=== PATIENT | female | born 1945 | race Caucasian/White ===

== ENCOUNTER 2016-04-29 10:15 | Outpatient (CLI) | payer MEDICARE, OTHER | END 2016-04-29 10:16 | disposition home or self-care (01) | DX: E11.9 Type 2 diabetes mellitus without complications (principal); Z79.899 Other long term (current) drug therapy ==

== ENCOUNTER 2016-04-29 13:31 | Emergency (ER) | END 2016-04-29 15:39 | disposition left against medical advice (07) ==

== ENCOUNTER 2016-04-30 10:23 | Outpatient (CLI) | payer MEDICARE, OTHER | END 2016-04-30 10:24 | disposition home or self-care (01) | DX: N30.01 Acute cystitis with hematuria (principal) ==

== ENCOUNTER 2016-09-24 13:56 | Outpatient (CLI) | payer MEDICARE, OTHER ==
[2016-09-24 19:07] LABS: HEMOGLOBIN A1C 0.48 g/dL
== END 2016-09-24 13:57 ==
LOC: LAB.R 13:56
PROVIDERS: ATTEND Internal Medicine
DX: E11.9 Type 2 diabetes mellitus without complications (principal)
CPT/HCPCS: 83036

== ENCOUNTER 2016-11-03 10:00 | Outpatient (CLI) | payer MEDICARE, OTHER | END 2016-11-03 10:01 | disposition home or self-care (01) | LOC: SC 10:00 | PROVIDERS: ATTEND Internal Medicine Pulmonary Disease | DX: G47.33 Obstructive sleep apnea (adult) (pediatric) (principal) | CPT/HCPCS: 99203; G0463; 99212 ==

== ENCOUNTER 2017-01-29 08:00 | Outpatient (CLI) | payer MEDICARE, OTHER ==
[2017-01-29 13:57] LABS: HEMOGLOBIN A1C 0.49 g/dL
== END 2017-01-29 08:01 | disposition home or self-care (01) ==
LOC: LAB.N 08:00
PROVIDERS: ATTEND Physician Assistant Medical
DX: E11.9 Type 2 diabetes mellitus without complications (principal); Z79.899 Other long term (current) drug therapy
CPT/HCPCS: 36415; 82947; 83036

== ENCOUNTER 2017-02-06 08:00 | Outpatient (CLI) | payer MEDICARE, OTHER ==
[2017-02-06 14:35] LABS: BASOPHILS # (AUTO) 0.1 10^3/uL (0.0-0.1); BASOPHILS % (AUTO) 0.8 %; EOSINOPHILS # (AUTO) 0.3 10^3/uL (0.0-0.7); EOSINOPHILS % (AUTO) 3.9 %; HCT - HEMATOCRIT 35.1 % (37.0-47.0); HGB - HEMOGLOBIN 11.8 g/dL (12.0-16.0); LYMPHOCYTES # (AUTO) 1.8 10^3/uL (1.5-3.5); LYMPHOCYTES % (AUTO) 24.7 %; MEAN CORPUSCULAR HEMOGLOBIN 30.1 pg (27.0-31.0); MEAN CORPUSCULAR HGB CONC 33.6 g/dL (32.0-36.0); MEAN CORPUSCULAR VOLUME 89.7 fL (81.0-99.0); MEAN PLATELET VOLUME 9.7 fL (7.9-10.8); MONOCYTES # (AUTO) 0.6 10^3/uL (0.0-1.0); MONOCYTES % (AUTO) 7.7 %; NEUTROPHILS # (AUTO) 4.7 10^3/uL (1.5-6.6); NEUTROPHILS % (AUTO) 62.9 %; RED BLOOD COUNT 3.92 10^6/uL (4.20-5.40); RED CELL DISTRIBUTION WIDTH 13.2 % (12.0-15.0); UNCORRECTED WHITE BLOOD COUNT 7.4 x10^3/uL; WHITE BLOOD COUNT 7.4 x10^3/uL (4.8-10.8)
[2017-02-06 14:52] LABS: ALBUMIN/GLOBULIN RATIO 1.1 (1.0-2.2); BILIRUBIN,TOTAL 0.3 mg/dL (0.2-1.0); BUN - BLOOD UREA NITROGEN 19 mg/dL (6-20); CALCIUM 9.4 mg/dL (8.5-10.3); CARBON DIOXIDE - CO2 26 mmol/L (21-32); CHLORIDE 98 mmol/L (101-111); CHOL/HDL RATIO 5.9 (<4.4); CHOLESTEROL 207 mg/dL; CREATININE 0.8 mg/dL (0.4-1.0); GFR - MDRD 70 (>89); GLUCOSE 112 mg/dL (70-100); HDL CHOLESTEROL 35 mg/dL; LDL/HDL RATIO 3.5 (<4.4); POTASSIUM 4.2 mmol/L (3.5-5.0); SODIUM 135 mmol/L (135-145); TOTAL PROTEIN 7.5 g/dL (6.7-8.2); TRIGLYCERIDES 251 mg/dL; VLDL CHOLESTEROL 50 mg/dL
== END 2017-02-06 08:01 | disposition home or self-care (01) ==
LOC: LAB.R 08:00
PROVIDERS: ATTEND Nurse Practitioner Primary Care
DX: Z00.00 Encounter for general adult medical examination without abnormal findings (principal); E11.9 Type 2 diabetes mellitus without complications; E55.9 Vitamin D deficiency, unspecified; Z79.899 Other long term (current) drug therapy
CPT/HCPCS: 80053; 80061; 82306; 84443; 85025

== ENCOUNTER 2017-08-07 08:00 | Outpatient (CLI) | payer MEDICARE, OTHER ==
[2017-08-07 13:28] LABS: ALBUMIN/GLOBULIN RATIO 1.3 (1.0-2.2); BASOPHILS # (AUTO) 0.1 10^3/uL (0.0-0.1); BASOPHILS % (AUTO) 0.9 %; BILIRUBIN,TOTAL 0.5 mg/dL (0.2-1.0); CALCIUM 9.2 mg/dL (8.5-10.3); CREATININE 0.9 mg/dL (0.4-1.0); EOSINOPHILS # (AUTO) 0.2 10^3/uL (0.0-0.7); EOSINOPHILS % (AUTO) 3.1 %; HGB - HEMOGLOBIN 12.6 g/dL (12.0-16.0); LYMPHOCYTES # (AUTO) 1.8 10^3/uL (1.5-3.5); LYMPHOCYTES % (AUTO) 27.7 %; MEAN CORPUSCULAR HEMOGLOBIN 32.7 pg (27.0-31.0); MEAN CORPUSCULAR HGB CONC 34.8 g/dL (32.0-36.0); MEAN CORPUSCULAR VOLUME 93.9 fL (81.0-99.0); MEAN PLATELET VOLUME 9.4 fL (7.9-10.8); MONOCYTES # (AUTO) 0.4 10^3/uL (0.0-1.0); NEUTROPHILS # (AUTO) 3.9 10^3/uL (1.5-6.6); NEUTROPHILS % (AUTO) 61.3 %; PLT - PLATELET COUNT 207 10^3/uL (130-450); RED BLOOD COUNT 3.86 10^6/uL (4.20-5.40); RED CELL DISTRIBUTION WIDTH 13.6 % (12.0-15.0); TOTAL PROTEIN 7.2 g/dL (6.7-8.2); WHITE BLOOD COUNT 6.3 x10^3/uL (4.8-10.8)
[2017-08-07 13:40] LABS: HB2 TOTAL 13.8 g/dL; HEMOGLOBIN A1C 0.63 g/dL; HEMOGLOBIN A1C % 6.3 % (4.6-6.2)
== END 2017-08-07 08:01 | disposition home or self-care (01) ==
LOC: LAB.N 08:00
PROVIDERS: ATTEND Physician Assistant Medical
DX: E11.9 Type 2 diabetes mellitus without complications (principal); D64.9 Anemia, unspecified; E78.5 Hyperlipidemia, unspecified; Z79.899 Other long term (current) drug therapy
CPT/HCPCS: 36415; 80053; 83036; 85025

== ENCOUNTER 2017-09-01 08:00 | Outpatient (CLI) | payer MEDICARE, OTHER ==
[2017-09-01 17:35] LABS: BASOPHILS # (AUTO) 0.1 10^3/uL (0.0-0.1); BASOPHILS % (AUTO) 0.8 %; EOSINOPHILS # (AUTO) 0.1 10^3/uL (0.0-0.7); EOSINOPHILS % (AUTO) 1.9 %; HGB - HEMOGLOBIN 12.9 g/dL (12.0-16.0); LYMPHOCYTES # (AUTO) 2.3 10^3/uL (1.5-3.5); LYMPHOCYTES % (AUTO) 33.4 %; MEAN CORPUSCULAR HEMOGLOBIN 32.2 pg (27.0-31.0); MEAN CORPUSCULAR HGB CONC 34.2 g/dL (32.0-36.0); MEAN CORPUSCULAR VOLUME 94.2 fL (81.0-99.0); MEAN PLATELET VOLUME 9.2 fL (7.9-10.8); MONOCYTES # (AUTO) 0.6 10^3/uL (0.0-1.0); MONOCYTES % (AUTO) 8.2 %; NEUTROPHILS # (AUTO) 3.8 10^3/uL (1.5-6.6); NEUTROPHILS % (AUTO) 55.7 %; PLT - PLATELET COUNT 279 10^3/uL (130-450); RED BLOOD COUNT 4.02 10^6/uL (4.20-5.40); RED CELL DISTRIBUTION WIDTH 12.8 % (12.0-15.0); WHITE BLOOD COUNT 6.7 x10^3/uL (4.8-10.8)
[2017-09-01 17:49] LABS: ALBUMIN 4.1 g/dL (3.2-5.5); ALBUMIN/GLOBULIN RATIO 1.2 (1.0-2.2); ALKALINE PHOSPHATASE 79 IU/L (42-121); ALT ALANINE AMINOTRANSFERASE 22 IU/L (10-60); AST ASPARTATE AMINOTRANSFERASE 22 IU/L (10-42); BILIRUBIN,TOTAL 0.4 mg/dL (0.2-1.0); BUN - BLOOD UREA NITROGEN 27 mg/dL (6-20); CALCIUM 9.2 mg/dL (8.5-10.3); CARBON DIOXIDE - CO2 27 mmol/L (21-32); CHLORIDE 96 mmol/L (101-111); CHOL/HDL RATIO 6.9 (<4.4); CHOLESTEROL 214 mg/dL; GFR - MDRD 54 (>89); GLUCOSE 93 mg/dL (70-100); HDL CHOLESTEROL 31 mg/dL; SODIUM 133 mmol/L (135-145); TOTAL PROTEIN 7.5 g/dL (6.7-8.2)
[2017-09-01 18:23] LABS: LDL CHOLESTEROL,DIRECT 93 mg/dL
[2017-09-01 21:35] LABS: THYROID STIMULATING HORMONE 2.29 uIU/mL (0.34-5.60)
== END 2017-09-01 08:01 | disposition home or self-care (01) ==
LOC: LAB.R 08:00
PROVIDERS: ATTEND Nurse Practitioner Primary Care
DX: E55.9 Vitamin D deficiency, unspecified (principal); E78.5 Hyperlipidemia, unspecified; D64.9 Anemia, unspecified; R06.09 Other forms of dyspnea; R41.3 Other amnesia; Z79.899 Other long term (current) drug therapy
CPT/HCPCS: 80053; 80061; 82306; 82607; 83721; 84443; 85025

== ENCOUNTER 2017-09-30 10:47 | Outpatient (CLI) | payer MEDICARE, OTHER ==
[2017-09-30] MEDS ORDERED: IOPAMIDOL-300 100 ML VIAL ONE (11:11)
[2017-09-30] MEDS ORDERED: IOPAMIDOL-300 50 ML VIAL ONE (11:11)
[2017-09-30] MEDS ORDERED: IOPAMIDOL-300 50 ML VIAL PO ONE (17:16)
[2017-09-30] MEDS ORDERED: IOPAMIDOL-300 100 ML VIAL IVP ONE (17:19)
--- NOTE | 2017-09-30 19:32 | CT Report ---
ABDOMEN CT WITH CONTRAST: 09/30/2017 HISTORY: Incisional ventral hernia for further evaluation. CONTRAST: 100 mL Isovue 300 IV. 50 mL Isovue 300 p.o. COMPARISON: 12/21/2014. FINDINGS: No pleural effusions. Negative liver, spleen, adrenal glands, kidneys and pancreas. Status post cholecystectomy. No free fluid, adenopathy, abnormal collections or masses. Prior Sheila fundoplication. Degenerative change in the spine without bone destruction. Several areas of thinning/dehiscent anterior abdominal wall including: Axial image 23, approximately 1 cm in diameter supraumbilical. Axial image 38 approximately 3 cm in width x 2 cm in length at the gastric body level. Axial image 56 - approximately 4 cm transverse x 3 cm vertical at the level of the umbilicus containing fat. IMPRESSION: 1. NEGATIVE SOLID INTRAABDOMINAL VISCERA. 2. SEVERAL AREAS OF DEHISCENCE/THINNING OF THE ANTERIOR ABDOMINAL WALL, THE LARGEST AT THE LEVEL OF THE UMBILICUS MEASURING APPROXIMATELY 4 CM TRANSVERSE X 3 CM VERTICAL WITH A SMALL FOCAL PROTRUSION OF FAT ANTERIORLY. SECOND LARGEST IS AT THE LEVEL OF THE GASTRIC BODY, MEASURING APPROXIMATELY 3 CM TRANSVERSE X 2 CM VERTICAL. NO HERNIATION OF FAT AT THIS LEVEL. NO HERNIATION OF BOWEL AT ANY LEVEL. 3. OTHERWISE, NEGATIVE. CT DOSE REDUCTION STATEMENT In accordance with CT protocol optimization, one or more of the following dose reduction techniques were utilized for this exam: automated exposure control, adjustment of mA and/or KV based on patient size, or use of iterative reconstructive technique. TD: 09/30/2017 17:10 MTDD
== END 2017-09-30 10:48 | disposition home or self-care (01) ==
LOC: DI 10:47
PROVIDERS: ATTEND Nurse Practitioner Primary Care
DX: K43.2 Incisional hernia without obstruction or gangrene (principal)
CPT/HCPCS: 74160; Q9967

== ENCOUNTER 2017-11-02 10:11 | Outpatient (CLI) | payer MEDICARE, OTHER ==
[2017-11-02 13:29] LABS: HB2 TOTAL 12.6 g/dL; HEMOGLOBIN A1C 0.57 g/dL; HEMOGLOBIN A1C % 6.3 % (4.6-6.2)
== END 2017-11-02 10:12 | disposition home or self-care (01) ==
LOC: LAB.N 10:11
PROVIDERS: ATTEND Nurse Practitioner Primary Care
DX: E11.8 Type 2 diabetes mellitus with unspecified complications (principal)
CPT/HCPCS: 36415; 82947; 83036

== ENCOUNTER 2018-08-06 08:00 | Outpatient (CLI) | payer MEDICARE, OTHER ==
[2018-08-06 12:41] LABS: BASOPHILS % (AUTO) 0.8 %; EOSINOPHILS # (AUTO) 0.1 10^3/uL (0.0-0.7); EOSINOPHILS % (AUTO) 2.8 %; HGB - HEMOGLOBIN 12.1 g/dL (12.0-16.0); LYMPHOCYTES # (AUTO) 1.5 10^3/uL (1.5-3.5); LYMPHOCYTES % (AUTO) 29.9 %; MEAN CORPUSCULAR HEMOGLOBIN 31.9 pg (27.0-31.0); MEAN CORPUSCULAR VOLUME 93.9 fL (81.0-99.0); MEAN PLATELET VOLUME 9.5 fL (7.9-10.8); MONOCYTES # (AUTO) 0.4 10^3/uL (0.0-1.0); MONOCYTES % (AUTO) 7.8 %; NEUTROPHILS % (AUTO) 58.7 %; PLT - PLATELET COUNT 219 10^3/uL (130-450); RED BLOOD COUNT 3.78 10^6/uL (4.20-5.40); RED CELL DISTRIBUTION WIDTH 12.3 % (12.0-15.0); WHITE BLOOD COUNT 5.2 x10^3/uL (4.8-10.8)
[2018-08-06 13:10] LABS: ALBUMIN 3.9 g/dL (3.2-5.5); ALBUMIN/GLOBULIN RATIO 1.1 (1.0-2.2); ALKALINE PHOSPHATASE 82 IU/L (42-121); ALT ALANINE AMINOTRANSFERASE 20 IU/L (10-60); AST ASPARTATE AMINOTRANSFERASE 20 IU/L (10-42); BILIRUBIN,TOTAL 0.8 mg/dL (0.2-1.0); BUN - BLOOD UREA NITROGEN 24 mg/dL (6-20); CALCIUM 9.1 mg/dL (8.5-10.3); CARBON DIOXIDE - CO2 28 mmol/L (21-32); CHLORIDE 100 mmol/L (101-111); CHOL/HDL RATIO 5.8 (<4.4); CHOLESTEROL 184 mg/dL; CREATININE 0.9 mg/dL (0.4-1.0); GFR - MDRD 61 (>89); GLUCOSE 92 mg/dL (70-100); HDL CHOLESTEROL 32 mg/dL; LDL CHOLESTEROL,CALCULATED 75 mg/dL; LDL/HDL RATIO 2.3 (<4.4); SODIUM 136 mmol/L (135-145); TOTAL PROTEIN 7.3 g/dL (6.7-8.2); VLDL CHOLESTEROL 77 mg/dL
[2018-08-06 13:28] LABS: HB2 TOTAL 12.4 g/dL; HEMOGLOBIN A1C 0.55 g/dL; HEMOGLOBIN A1C % 6.2 % (4.6-6.2)
== END 2018-08-06 23:59 | disposition home or self-care (01) ==
LOC: LAB.N 08:00
PROVIDERS: ATTEND Family Medicine
DX: E78.5 Hyperlipidemia, unspecified (principal); E11.9 Type 2 diabetes mellitus without complications; K21.9 Gastro-esophageal reflux disease without esophagitis; I10 Essential (primary) hypertension; E55.9 Vitamin D deficiency, unspecified
CPT/HCPCS: 36415; 80053; 80061; 83036; 83721; 85025

== ENCOUNTER 2019-02-07 08:00 | Outpatient (CLI) | payer MEDICARE, OTHER ==
[2019-02-07 19:03] LABS: BASOPHILS % (AUTO) 0.7 %; EOSINOPHILS # (AUTO) 0.1 10^3/uL (0.0-0.7); EOSINOPHILS % (AUTO) 1.5 %; HGB - HEMOGLOBIN 11.3 g/dL (12.0-16.0); LYMPHOCYTES # (AUTO) 1.6 10^3/uL (1.5-3.5); LYMPHOCYTES % (AUTO) 34.9 %; MEAN CORPUSCULAR HEMOGLOBIN 30.9 pg (27.0-31.0); MEAN CORPUSCULAR HGB CONC 32.2 g/dL (32.0-36.0); MEAN CORPUSCULAR VOLUME 95.9 fL (81.0-99.0); MONOCYTES # (AUTO) 0.3 10^3/uL (0.0-1.0); MONOCYTES % (AUTO) 7.2 %; NEUTROPHILS # (AUTO) 2.6 10^3/uL (1.5-6.6); NEUTROPHILS % (AUTO) 55.5 %; PLT - PLATELET COUNT 207 10^3/uL (130-450); RED BLOOD COUNT 3.66 10^6/uL (4.20-5.40); WHITE BLOOD COUNT 4.6 x10^3/uL (4.8-10.8)
[2019-02-07 19:22] LABS: CREATININE 1.4 mg/dL (0.4-1.0)
[2019-02-07 19:23] LABS: HB2 TOTAL 11.9 g/dL; HEMOGLOBIN A1C 0.51 g/dL; HEMOGLOBIN A1C % 6.1 % (4.6-6.2)
== END 2019-02-07 23:59 | disposition home or self-care (01) ==
LOC: LAB.N 08:00
PROVIDERS: ATTEND Family Medicine
DX: M19.90 Unspecified osteoarthritis, unspecified site (principal); F41.9 Anxiety disorder, unspecified; I10 Essential (primary) hypertension; E11.9 Type 2 diabetes mellitus without complications
CPT/HCPCS: 36415; 80048; 83036; 85025

== ENCOUNTER 2019-08-23 08:00 | Outpatient (CLI) | payer MEDICARE, OTHER ==
[2019-08-23 13:40] LABS: BASOPHILS % (AUTO) 0.7 %; EOSINOPHILS # (AUTO) 0.1 10^3/uL (0.0-0.7); EOSINOPHILS % (AUTO) 2.2 %; HGB - HEMOGLOBIN 10.9 g/dL (12.0-16.0); LYMPHOCYTES # (AUTO) 1.6 10^3/uL (1.5-3.5); LYMPHOCYTES % (AUTO) 28.6 %; MEAN CORPUSCULAR HEMOGLOBIN 30.9 pg (27.0-31.0); MEAN CORPUSCULAR HGB CONC 32.5 g/dL (32.0-36.0); MEAN CORPUSCULAR VOLUME 94.9 fL (81.0-99.0); MEAN PLATELET VOLUME 11.3 fL (7.9-10.8); MONOCYTES # (AUTO) 0.4 10^3/uL (0.0-1.0); MONOCYTES % (AUTO) 7.2 %; NEUTROPHILS # (AUTO) 3.4 10^3/uL (1.5-6.6); NEUTROPHILS % (AUTO) 60.9 %; PLT - PLATELET COUNT 211 10^3/uL (130-450); RED BLOOD COUNT 3.53 10^6/uL (4.20-5.40); RED CELL DISTRIBUTION WIDTH 13.2 % (12.0-15.0); WHITE BLOOD COUNT 5.5 x10^3/uL (4.8-10.8)
[2019-08-23 13:51] LABS: ALBUMIN/GLOBULIN RATIO 1.2 (1.0-2.2); BILIRUBIN,TOTAL 0.6 mg/dL (0.2-1.0); CALCIUM 9.2 mg/dL (8.5-10.3); CREATININE 1.4 mg/dL (0.4-1.0); TOTAL PROTEIN 7.3 g/dL (6.7-8.2)
[2019-08-24 11:19] LABS: HB2 TOTAL 11.3 g/dL; HEMOGLOBIN A1C 0.56 g/dL; HEMOGLOBIN A1C % 6.7 % (4.6-6.2)
== END 2019-08-23 23:59 | disposition home or self-care (01) ==
LOC: LAB.WCP 08:00
PROVIDERS: ATTEND Family Medicine
DX: I10 Essential (primary) hypertension (principal); E11.43 Type 2 diabetes mellitus with diabetic autonomic (poly)neuropathy
CPT/HCPCS: 36415; 80053; 83036; 83735; 85025

== ENCOUNTER 2019-09-22 09:51 | Outpatient (CLI) | payer MEDICARE, OTHER ==
[2019-09-22 13:45] LABS: ALBUMIN/GLOBULIN RATIO 1.3 (1.0-2.2); BILIRUBIN,TOTAL 0.6 mg/dL (0.2-1.0); CALCIUM 9.1 mg/dL (8.5-10.3); CREATININE 1.5 mg/dL (0.4-1.0); MAGNESIUM 2.3 mg/dL (1.7-2.8); TOTAL PROTEIN 7.1 g/dL (6.7-8.2)
[2019-09-22 13:54] LABS: BASOPHILS % (AUTO) 0.8 %; EOSINOPHILS # (AUTO) 0.2 10^3/uL (0.0-0.7); EOSINOPHILS % (AUTO) 3.4 %; HGB - HEMOGLOBIN 10.7 g/dL (12.0-16.0); LYMPHOCYTES # (AUTO) 1.6 10^3/uL (1.5-3.5); LYMPHOCYTES % (AUTO) 30.8 %; MEAN CORPUSCULAR HEMOGLOBIN 31.2 pg (27.0-31.0); MEAN CORPUSCULAR HGB CONC 32.6 g/dL (32.0-36.0); MEAN CORPUSCULAR VOLUME 95.6 fL (81.0-99.0); MEAN PLATELET VOLUME 11.3 fL (7.9-10.8); MONOCYTES # (AUTO) 0.4 10^3/uL (0.0-1.0); MONOCYTES % (AUTO) 8.3 %; NEUTROPHILS # (AUTO) 2.8 10^3/uL (1.5-6.6); NEUTROPHILS % (AUTO) 56.3 %; PLT - PLATELET COUNT 193 10^3/uL (130-450); RED BLOOD COUNT 3.43 10^6/uL (4.20-5.40)
[2019-09-22 14:37] LABS: HB2 TOTAL 11.6 g/dL; HEMOGLOBIN A1C 0.51 g/dL; HEMOGLOBIN A1C % 6.2 % (4.6-6.2)
== END 2019-09-22 23:59 | disposition home or self-care (01) ==
LOC: LAB.WCP 09:51
PROVIDERS: ATTEND Family Medicine
DX: Z01.818 Encounter for other preprocedural examination (principal); I10 Essential (primary) hypertension; E11.43 Type 2 diabetes mellitus with diabetic autonomic (poly)neuropathy
CPT/HCPCS: 36415; 80053; 83036; 83735; 85025

== ENCOUNTER 2020-04-13 12:45 | Outpatient (CLI) | payer MEDICARE, OTHER ==
[2020-04-13 18:32] LABS: CALCIUM 9.4 mg/dL (8.5-10.3); CREATININE 1.4 mg/dL (0.4-1.0)
[2020-04-13 20:46] LABS: HEMOGLOBIN A1c% 6.2 % (4.27-6.07)
== END 2020-04-13 12:46 | disposition home or self-care (01) ==
LOC: LAB.N 12:45
PROVIDERS: ATTEND Family Medicine
DX: U07.1 COVID-19 (principal); D64.9 Anemia, unspecified; E11.42 Type 2 diabetes mellitus with diabetic polyneuropathy; I10 Essential (primary) hypertension; E78.5 Hyperlipidemia, unspecified
CPT/HCPCS: 36415; 80048; 81599; 82043; 82570; 83036; 86769

== ENCOUNTER 2020-06-13 08:00 | Outpatient (CLI) | payer MEDICARE, OTHER ==
[2020-06-13 18:52] LABS: ALBUMIN 4.1 g/dL (3.2-5.5); ALBUMIN/GLOBULIN RATIO 1.3 (1.0-2.2); BILIRUBIN,TOTAL 0.6 mg/dL (0.2-1.0); CALCIUM 9.7 mg/dL (8.5-10.3); CREATININE 1.5 mg/dL (0.4-1.0); CRP - C-REACTIVE PROTEIN 1.3 mg/dL (0-1.0); TOTAL PROTEIN 7.3 g/dL (6.7-8.2)
[2020-06-13 19:56] LABS: BASOPHILS % (AUTO) 0.6 %; EOSINOPHILS # (AUTO) 0.2 10^3/uL (0.0-0.7); EOSINOPHILS % (AUTO) 2.5 %; HGB - HEMOGLOBIN 10.9 g/dL (12.0-16.0); LYMPHOCYTES # (AUTO) 1.9 10^3/uL (1.5-3.5); LYMPHOCYTES % (AUTO) 29.3 %; MEAN CORPUSCULAR HEMOGLOBIN 32.1 pg (27.0-31.0); MEAN CORPUSCULAR HGB CONC 33.5 g/dL (32.0-36.0); MEAN CORPUSCULAR VOLUME 95.6 fL (81.0-99.0); MEAN PLATELET VOLUME 12.1 fL (7.9-10.8); MONOCYTES # (AUTO) 0.6 10^3/uL (0.0-1.0); MONOCYTES % (AUTO) 9.8 %; NEUTROPHILS # (AUTO) 3.7 10^3/uL (1.5-6.6); NEUTROPHILS % (AUTO) 57.3 %; PLT - PLATELET COUNT 230 10^3/uL (130-450); RED CELL DISTRIBUTION WIDTH 12.3 % (12.0-15.0); WHITE BLOOD COUNT 6.5 x10^3/uL (4.8-10.8)
== END 2020-06-13 23:59 | disposition home or self-care (01) ==
LOC: LAB.WCP 08:00
PROVIDERS: ATTEND Family Medicine
DX: R19.7 Diarrhea, unspecified (principal)
CPT/HCPCS: 36415; 80053; 85025; 85651; 86140

== ENCOUNTER 2020-06-15 08:00 | Outpatient (CLI) | payer MEDICARE, OTHER | END 2020-06-15 23:59 | disposition home or self-care (01) | LOC: LAB.R 08:00 | PROVIDERS: ATTEND Family Medicine | DX: R19.7 Diarrhea, unspecified (principal) | CPT/HCPCS: 87493 ==

== ENCOUNTER 2020-07-03 08:00 | Outpatient (CLI) | payer MEDICARE, OTHER ==
[2020-07-03 12:07] LABS: ABSOLUTE RETICS # AUTO 0.061 10^6/uL (0.020-0.110); BASOPHILS % (AUTO) 0.5 %; EOSINOPHILS # (AUTO) 0.2 10^3/uL (0.0-0.7); EOSINOPHILS % (AUTO) 3.1 %; HCT - HEMATOCRIT 34.7 % (37.0-47.0); HGB - HEMOGLOBIN 11.6 g/dL (12.0-16.0); LYMPHOCYTES # (AUTO) 1.6 10^3/uL (1.5-3.5); LYMPHOCYTES % (AUTO) 27.6 %; MEAN CORPUSCULAR HGB CONC 33.4 g/dL (32.0-36.0); MEAN CORPUSCULAR VOLUME 95.6 fL (81.0-99.0); MEAN PLATELET VOLUME 11.4 fL (7.9-10.8); MONOCYTES # (AUTO) 0.6 10^3/uL (0.0-1.0); MONOCYTES % (AUTO) 10.1 %; NEUTROPHILS # (AUTO) 3.3 10^3/uL (1.5-6.6); NEUTROPHILS % (AUTO) 58.2 %; PLT - PLATELET COUNT 212 10^3/uL (130-450); RED BLOOD COUNT 3.63 10^6/uL (4.20-5.40); RED CELL DISTRIBUTION WIDTH 12.1 % (12.0-15.0); RETICULOCYTE COUNT % (AUTO) 1.68 % (0.5-2.3); WHITE BLOOD COUNT 5.7 x10^3/uL (4.8-10.8)
[2020-07-03 12:35] LABS: % IRON SATURATION 24 % (20-50); IRON 91 ug/dL (28-170); TOTAL IRON BINDING CAPACITY 375 ug/dL (250-450); TRANSFERRIN 268 mg/dL (192-382)
[2020-07-03 12:42] LABS: FERRITIN 74.3 ng/mL (11.0-306.8)
[2020-07-03 12:45] LABS: FOLATE 13.42 ng/mL (5.90 - >24.8)
== END 2020-07-03 23:59 | disposition home or self-care (01) ==
LOC: LAB.WCP 08:00
PROVIDERS: ATTEND Family Medicine
DX: D50.0 Iron deficiency anemia secondary to blood loss (chronic) (principal)
CPT/HCPCS: 36415; 82607; 82728; 82746; 83540; 84466; 85025; 85045

== ENCOUNTER 2020-10-09 08:00 | Outpatient (CLI) | payer MEDICARE, OTHER ==
[2020-10-09 18:49] LABS: BASOPHILS % (AUTO) 0.7 %; EOSINOPHILS # (AUTO) 0.1 10^3/uL (0.0-0.7); EOSINOPHILS % (AUTO) 2.3 %; HCT - HEMATOCRIT 32.4 % (37.0-47.0); HGB - HEMOGLOBIN 10.6 g/dL (12.0-16.0); LYMPHOCYTES # (AUTO) 2.1 10^3/uL (1.5-3.5); LYMPHOCYTES % (AUTO) 35.2 %; MEAN CORPUSCULAR HEMOGLOBIN 32.3 pg (27.0-31.0); MEAN CORPUSCULAR HGB CONC 32.7 g/dL (32.0-36.0); MEAN CORPUSCULAR VOLUME 98.8 fL (81.0-99.0); MEAN PLATELET VOLUME 11.6 fL (7.9-10.8); MONOCYTES # (AUTO) 0.5 10^3/uL (0.0-1.0); NEUTROPHILS # (AUTO) 3.2 10^3/uL (1.5-6.6); NEUTROPHILS % (AUTO) 53.5 %; PLT - PLATELET COUNT 224 10^3/uL (130-450); RED BLOOD COUNT 3.28 10^6/uL (4.20-5.40); RED CELL DISTRIBUTION WIDTH 12.2 % (12.0-15.0)
[2020-10-09 18:56] LABS: ALBUMIN 3.9 g/dL (3.2-5.5); ALBUMIN/GLOBULIN RATIO 1.3 (1.0-2.2); BILIRUBIN,TOTAL 0.5 mg/dL (0.2-1.0); CALCIUM 9.5 mg/dL (8.5-10.3); CREATININE 1.1 mg/dL (0.4-1.0); POTASSIUM 4.5 mmol/L (3.5-5.0); TOTAL PROTEIN 6.9 g/dL (6.7-8.2)
[2020-10-09 19:18] LABS: FREE T3 3.36 pg/mL (2.5-3.9)
[2020-10-09 19:19] LABS: FREE T4 (FREE THYROXINE) 0.81 ng/dL (0.58-1.64); THYROID STIMULATING HORMONE 2.53 uIU/mL (0.34-5.60)
== END 2020-10-09 23:59 | disposition home or self-care (01) ==
LOC: LAB.WCP 08:00
PROVIDERS: ATTEND Family Medicine
DX: R10.9 Unspecified abdominal pain (principal); R19.7 Diarrhea, unspecified
CPT/HCPCS: 36415; 80053; 84439; 84443; 84481; 85025

== ENCOUNTER 2020-11-28 13:07 | Outpatient (CLI) | payer MEDICARE, OTHER ==
--- NOTE | 2020-12-18 08:05 | Mammography Report ---
BILATERAL DIGITAL SCREENING MAMMOGRAM 3D/2D: 11/28/2020 CLINICAL: Routine screening. Comparison is made to exams dated: 12/02/2012 mammogram, 01/08/2009 mammogram, 12/13/2007 ultrasound, an d 11/25/2007 mammogram - [facility]. There are scattered fibroglandular elements in both breasts. There is a new 0.6 cm oval equal density asymmetry in the left breast anterior depth lateral region s een on the craniocaudal view. No other significant masses, calcifications, or other findings are see n in either breast. Of note, due to technical issues, only the craniocaudal view was able to be imaged. However, the nohelia ent did not want to continue once the technical issue was resolved with ability to complete the study . IMPRESSION: INCOMPLETE: NEEDS ADDITIONAL IMAGING EVALUATION The new 0.6 cm oval equal density asymmetry in the left breast is indeterminate. Incomplete evaluatio n of the bilateral breast secondary to technical issues. Recommend repeating bilateral mammograms wit h possible bilateral ultrasounds to complete mammographic evaluation of both breasts, additional mamm ograpic imaging of the left breast finding seen in today's craniocaudal view, and targeted ultrasound as needed. This exam was interpreted at Station ID: [id number]. NOTE: For mammograms, a report in lay terms will be sent to the patient. Approximately 15% of breast malignancies will not be visualized mammographically. In the management of a palpable breast mass, a negative mammogram must not discourage biopsy of a clinically suspicious lesion. Electronically Signed By: Alfredo Hermosillo M.D. aty/:12/18/2020 07:02:37 ACR BI-RADS Category 0: Incomplete 3340F PARENCHYMAL PATTERN: (A) - The breast(s) demonstrate(s) scattered fibroglandular densities. BI-RADS CATEGORY: (0) - 0 Mammo and [place] [id number] Immediate follow-up LATERALITY: (B)
== END 2020-11-28 13:08 | disposition home or self-care (01) ==
LOC: DI 13:07
PROVIDERS: ATTEND Family Medicine
DX: Z12.31 Encounter for screening mammogram for malignant neoplasm of breast (principal); N64.89 Other specified disorders of breast

== ENCOUNTER 2020-12-13 13:34 | Outpatient (CLI) | payer MEDICARE, OTHER ==
--- NOTE | 2020-12-14 09:21 | XRAY Report ---
PROCEDURE: Abdomen 2 View X-Ray INDICATIONS: ABDOMINAL PAIN, DIARRHEA TECHNIQUE: 1 view of the abdomen were acquired. COMPARISON: CT of abdomen dated 09/30/2017 FINDINGS: Surgical changes and devices: Surgical clips are seen in gallbladder fossa and epigastric region.. Bowel: No pneumoperitoneum. The bowel gas pattern is nonobstructive. Mild fecal stasis throughout t he colon is seen. Soft tissues: No masses; visualized solid organ contours appear normal in size. No suspicious abdom inal calcifications. Bones: No suspicious bony abnormalities. IMPRESSION: No evidence of bowel obstruction or gross free air. Mild to moderate fecal burden in the colon. Reviewed by: Dylan Ji MD on 12/14/2020 9:20 AM PDT Approved by: Dylan Ji MD on 12/14/2020 9:20 AM PDT Station ID: [id number]
== END 2020-12-13 13:35 | disposition home or self-care (01) ==
LOC: DI.N 13:34
PROVIDERS: ATTEND Family Medicine
DX: R10.9 Unspecified abdominal pain (principal); R19.7 Diarrhea, unspecified

== ENCOUNTER 2021-02-04 14:41 | Outpatient (CLI) | payer MEDICARE, OTHER ==
[2021-02-04] MEDS ORDERED: GADOBUTROL 7.5 MMOL/7.5 ML VIAL ONE (15:13)
[2021-02-04 15:29] LABS: CREATININE 1.7 mg/dL (0.4-1.0)
[2021-02-04] MEDS ORDERED: GADOBUTROL 7.5 MMOL/7.5 ML VIAL IVP ONE (15:30)
--- NOTE | 2021-02-04 18:03 | MRI Report ---
PROCEDURE: IACS W/WO INDICATIONS: RIGHT VESTIBULAR SCHWANNOMA CONTRAST: IV CONTRAST: Gadavist ml: 8.4 TECHNIQUE: Noncontrast sagittal T1 spin echo, axial FLAIR, axial gradient echo, axial diffusion and ADC through the brain. Axial thin-slice 3D CISS, coronal balanced GE, axial T1 spin echo with fat saturation thr ough the internal auditory canals. After the administration of contrast, thin slice axial and bobby l T1 spin echo with fat saturation through the internal auditory canals, and axial T1 spin echo with fat saturation through the brain. COMPARISON: Correlation is made with prior head CT, 09/17/2012 FINDINGS: Image quality: The postcontrast coronal and sagittal reformatted images are nondiagnostic. Cerebellopontine angles: There is an enhancing mass seen within the right internal auditory canal, as on series 1001 image 8 and on series 1101 image 15, which measures 8 x 7 mm in greatest axial dimens ion, with a craniocaudal extent of 5 mm. No left-sided masses are seen. No cerebellar pontine angle cistern masses are seen. CSF spaces: Ventricles are normal in size and shape. No extra-axial fluid collections. Basal ciste rns are patent. Brain: No intracranial bleeds or mass effects. Jessica-white matter interface is intact. No abnormal intracranial enhancement. Diffusion weighted images demonstrate no acute ischemic insults. Brainste m appears normal. Normal intravascular flow voids are present. Skull and face: Calvarial marrow signal is normal. Orbits appear normal. Sinuses: Sinuses and mastoids are clear. IMPRESSION: There is an enhancing mass seen within the right internal auditory canal, which is consi stent with the given clinical history of a right vestibular schwannoma. Reviewed by: Syed Schroeder MD on 02/04/2021 5:02 PM BELINDA Approved by: Syed Schroeder MD on 02/04/2021 5:02 PM BELINDA Station ID: [id number]
[2021-02-05] MEDS ORDERED: GADOBUTROL 7.5 MMOL/7.5 ML VIAL IVP ONE (07:52)
== END 2021-02-04 14:42 | disposition home or self-care (01) ==
LOC: DI 14:41
PROVIDERS: ATTEND Otolaryngology Otology & Neurotology
DX: D33.3 Benign neoplasm of cranial nerves (principal); H90.A21 Sensorineural hearing loss, unilateral, right ear, with restricted hearing on the contralateral side; H93.11 Tinnitus, right ear; Z01.818 Encounter for other preprocedural examination
CPT/HCPCS: 36415; 70543; 82565; A9585

== ENCOUNTER 2021-08-18 13:07 | Emergency (ER) | payer MEDICARE, OTHER ==
--- NOTE | 2021-08-18 13:48 | ED Physician Documentation ---
PD HPI DYSPNEA - Stated complaint Stated Complaint: SOA/PALPITATION/DIZZY - Chief complaint Chief Complaint: Cardiac - History obtained from History obtained from: Patient - History of Present Illness Timing - onset: How many weeks ago (1) Timing - onset during: Light activity Timing - duration: Minutes Timing - details: Gradual onset, Still present Inciting event(s): Immobilization/travel, Emotional event. No: Out of meds, URI, Allergic rxn/anaphylaxis, Exercise, Exposure (ie smoke), FB / choking Improved by: Rest Worsened by: Exertion Associated symptoms: Palpitations, Anxiety. No: Fever, Cough, Hemoptysis, Wheezing, Chest pain / discomfort, Diaphoresis, Bilateral edema, Unilateral edema Similar symptoms before: Diagnosis (dehydration) Recently seen: Admitted - Additional information Additional information: 76-year-old female with history of type 2 diabetes and reflux with s/p Zeyad fundoplication as well as hypertension has developed chronic diarrhea after having her gallbladder out a number of years ago. She was seen in a hospital in [place] and diagnosed with dehydration and after 4 days in the hospital she was improved and went home. She states that she feels similar to the way she felt prior to going into that hospital. She also states that she has improved her diarrhea by the use of an iron pill. She does not check her sugars. She has a chief complaint of exertional dyspnea with a pounding sensation in her heart when she is exerting herself. She states she can walk to the bathroom and has to sit down and rest. She denies any swelling to her legs she does not recall whether they did a CAT scan of her chest when she was in [place]. She states that after she was in the hospital she felt better for some time and now has developed symptoms again. Review of Systems Constitutional: denies: Fever, Chills, Myalgias Eyes: denies: Decreased vision Ears: denies: Ear pain Nose: denies: Rhinorrhea / runny nose, Congestion Throat: denies: Sore throat Cardiac: reports: Palpitations. denies: Chest pain / pressure, Pedal edema, Calf pain Respiratory: reports: Dyspnea. denies: Cough, Wheezing GI: reports: Diarrhea. denies: Abdominal Pain, Nausea, Vomiting, Constipation : denies: Dysuria, Frequency PD PAST MEDICAL HISTORY - Past Medical History Cardiovascular: Hypertension, High cholesterol Respiratory: Sleep apnea, CPAP use Endocrine/Autoimmune: Type 2 diabetes GI: GERD, Chronic diarrhea : None HEENT: Other Psych: Anxiety, Post traumatic stress disorder Musculoskeletal: Osteoarthritis Derm: None - Past Surgical History General: Cholecystectomy, Hiatal hernia repair Ortho: Rotator cuff repair, Shoulder arthroplasty, Arthroscopic surgery /ROPE MAKER: Dilation and currettage Neuro: Gamma knife HEENT: Cataracts - Present Medications Home Medications: Ambulatory Orders Medication Instructions Recorded Confirmed DULoxetine [Cymbalta] 60 mg PO DAILY 04/04/13 09/09/16 LORazepam [Lorazepam] 2 mg PO DAILY 04/04/13 09/09/16 Diabetes 1 tab PO DAILY 09/09/16 Ergocalciferol [Vitamin D2] 100,000 unit PO Q7D 09/09/16 09/09/16 Melatonin 3 mg PO QPM 09/09/16 - Allergies Allergies/Adverse Reactions: Allergies Allergy/AdvReac Type Severity Reaction Status Date / Time acetaminophen [From Vicodin] Allergy vomiting Verified 08/18/21 13:26 hydrocodone bitartrate * Allergy vomiting Verified 08/18/21 13:26 [From Vicodin] oxycodone HCl * Allergy vomiting Verified 08/18/21 13:26 [From Percocet] - Social History Smoking Status: Never smoker PD ED PE NORMAL - Vitals Vital signs reviewed: Yes (hypertensive) - General General: No acute distress, Well developed/nourished - HEENT HEENT: Atraumatic, PERRL, EOMI - Neck Neck: Supple, no meningeal sign, No bony TTP - Cardiac Cardiac: RRR, No murmur - Respiratory Respiratory: No respiratory distress, Clear bilaterally - Abdomen Abdomen: Normal bowel sounds, Soft, Non tender, Non distended, No organomegaly - Back Back: No CVA TTP, No spinal TTP - Derm Derm: Normal color, Warm and dry, No rash - Extremities Extremities: No deformity, No edema - Neuro Neuro: Alert and oriented X 3, tree planter 2-12 intact, No motor deficit, No sensory deficit, Normal speech Eye Opening: Spontaneous Motor: Obeys Commands Verbal: Oriented GCS Score: 15 - Psych Psych: Normal mood, Normal affect Results - Vitals Vitals: Vital Signs - 24 hr 08/18/21 08/18/21 08/18/21 13:22 13:26 15:26 Temperature 36.7 C 36.7 C Heart Rate 84 84 81 Respiratory 16 16 24 Rate Blood Pressure 170/85 H 170/85 H 167/87 H O2 Saturation 98 98 100 08/18/21 17:00 Temperature Heart Rate 78 Respiratory 17 Rate Blood Pressure 163/86 H O2 Saturation 98 Oxygen O2 Source Room air - EKG (time done) 1320 Rate: Rate (enter#) (83) Rhythm: NSR QRS: Poor R wave progression Ischemia: Normal ST segments Compare to prior EKG: Old EKG unavailable Computer interpretation: Disagree with computer (The computer calls ST elevation in lateral leads and I do not see this. ) - Labs Labs: Laboratory Tests 08/18/21 08/18/21 08/18/21 13:50 13:50 13:50 WBC 6.8 RBC 3.52 L Hgb 10.9 L Hct 31.8 L MCV 90.3 MCH 31.0 MCHC 34.3 RDW 12.1 Plt Count 198 MPV 10.8 Neut # (Auto) 4.9 Lymph # (Auto) 1.4 L Karnes # (Auto) 0.4 Eos # (Auto) 0.1 Baso # (Auto) 0.0 Absolute Nucleated RBC 0.00 Nucleated RBC % 0.0 Sodium 133 L Potassium 3.8 Chloride 100 L Carbon Dioxide 23 Anion Gap 10.0 BUN 30 H Creatinine 1.2 H Estimated GFR (MDRD) 44 L Glucose 198 H Lactic Acid Calcium 9.2 Total Bilirubin 0.6 AST 17 ALT 16 Alkaline Phosphatase 80 B-Natriuretic Peptide 124 H Total Protein 6.8 Albumin 3.7 Globulin 3.1 Albumin/Globulin Ratio 1.2 Lipase 34 Urine Color Urine Clarity Urine pH Ur Specific [place] Urine Protein Urine Glucose (UA) Urine Ketones Urine Occult Blood Urine Nitrite Urine Bilirubin Urine Urobilinogen Ur Leukocyte Esterase Urine RBC Urine WBC Ur Squamous Epith Cells Urine Bacteria Ur Microscopic Review Urine Culture Comments 08/18/21 08/18/21 13:50 16:54 WBC RBC Hgb Hct MCV MCH MCHC RDW Plt Count MPV Neut # (Auto) Lymph # (Auto) [place] # (Auto) Eos # (Auto) Baso # (Auto) Absolute Nucleated RBC Nucleated RBC % Sodium Potassium Chloride Carbon Dioxide Anion Gap BUN Creatinine Estimated GFR (MDRD) Glucose Lactic Acid 1.6 Calcium Total Bilirubin AST ALT Alkaline Phosphatase B-Natriuretic Peptide Total Protein Albumin Globulin Albumin/Globulin Ratio Lipase Urine Color YELLOW Urine Clarity CLEAR Urine pH 6.0 Ur Specific [place] 1.020 Urine Protein 100 H Urine Glucose (UA) NEGATIVE Urine Ketones NEGATIVE Urine Occult Blood NEGATIVE Urine Nitrite NEGATIVE Urine Bilirubin NEGATIVE Urine Urobilinogen 0.2 (NORMAL) Ur Leukocyte Esterase NEGATIVE Urine RBC None Seen Urine WBC 0-3 Ur Squamous Epith Cells FEW Squamous Urine Bacteria None Seen Ur Microscopic Review INDICATED Urine Culture Comments NOT INDICATED - Rads (name of study) CTA chest Radiology: Prelim report reviewed (Impression: 1. No evidence of pulmonary embolism, aortic aneurysm or dissection. Cardiomegaly. Incidental 4 mm right upper lobe peripheral nodule. Consider 1 year follow-up to document stability.), EMP read indepedently, See rad report Procedures - IVC sono (time) 1345 Bedside IVC sono: IVC measures (cm) (0.72), Dehydration (est 2-3 liter deficit) PD MEDICAL DECISION MAKING - ED course Complexity details: reviewed old records, reviewed results, re-evaluated patient, considered differential, d/w patient, d/w family ED course: 76-year-old Lizeth Duvall has a history of type 2 diabetes and hypertension and she is predisposed to reflux. She has had Zeyad fundoplication for reflux. She is presenting today with an odd shortness of breath and she is found to be significantly dehydrated. A CTA of the chest is without out evidence of pulmonary or cardiac pathology. She is administered saline. She has improvement in her symptoms with treatment. Departure - Departure Disposition: 01 Home, Self Care Clinical Impression: Dehydration Condition: Stable Instructions: ED Dehydration Follow-Up: Jeffery Logan MD [Primary Care Provider] - Comments: Lizeth, today we did find you were significantly dehydrated, again. This may be related to your diabetes and my recommendation is to seek follow-up with Dr. Zimmerman to consider a change of your medications. We did not find pathology in your lungs or heart.
[2021-08-18 13:58] LABS: BASOPHILS % (AUTO) 0.4 %; EOSINOPHILS # (AUTO) 0.1 10^3/uL (0.0-0.7); HCT - HEMATOCRIT 31.8 % (37.0-47.0); HGB - HEMOGLOBIN 10.9 g/dL (12.0-16.0); LYMPHOCYTES # (AUTO) 1.4 10^3/uL (1.5-3.5); LYMPHOCYTES % (AUTO) 20.2 %; MEAN CORPUSCULAR HGB CONC 34.3 g/dL (32.0-36.0); MEAN CORPUSCULAR VOLUME 90.3 fL (81.0-99.0); MEAN PLATELET VOLUME 10.8 fL (7.9-10.8); MONOCYTES # (AUTO) 0.4 10^3/uL (0.0-1.0); MONOCYTES % (AUTO) 6.3 %; NEUTROPHILS # (AUTO) 4.9 10^3/uL (1.5-6.6); NEUTROPHILS % (AUTO) 71.8 %; PLT - PLATELET COUNT 198 10^3/uL (130-450); RED BLOOD COUNT 3.52 10^6/uL (4.20-5.40); RED CELL DISTRIBUTION WIDTH 12.1 % (12.0-15.0); WHITE BLOOD COUNT 6.8 x10^3/uL (4.8-10.8)
[2021-08-18 14:11] LABS: ALBUMIN 3.7 g/dL (3.2-5.5); ALBUMIN/GLOBULIN RATIO 1.2 (1.0-2.2); BILIRUBIN,TOTAL 0.6 mg/dL (0.2-1.0); CALCIUM 9.2 mg/dL (8.5-10.3); CREATININE 1.2 mg/dL (0.4-1.0); POTASSIUM 3.8 mmol/L (3.5-5.0); TOTAL PROTEIN 6.8 g/dL (6.7-8.2)
[2021-08-18] MEDS ORDERED: IOVERSOL 320 50 ML VIAL ONE (14:15)
[2021-08-18] MEDS: SODIUM CHLORIDE 0.9% 1,000 ML IV STA ×2 (14:38→15:43)
[2021-08-18] MEDS: IOVERSOL 320 50 ML VIAL IVP ONE (14:50)
--- NOTE | 2021-08-18 15:23 | CT Report ---
PROCEDURE: CT angiogram chest with contrast INDICATIONS: exertional dsypnea CONTRAST: IV CONTRAST: Optiray 320 ml: 80 PO CONTRAST: *NO PO CONTRAST TECHNIQUE: After the administration of intravenous contrast, 2 mm axial images were acquired from the pulmonary apices to the posterior costophrenic angles during the arterial phase. In addition, 1 mm lung kernel and 5 mm soft tissue kernel reconstructions were performed. For radiation dose reduction, the followi ng was used: automated exposure control, adjustment of mA and/or kV according to patient size. COMPARISON: FINDINGS: Image quality: Excellent. Pulmonary arteries: Pulmonary arteries are normal in size, and demonstrate no intraluminal filling d efects to suggest central pulmonary embolism. Lungs and pleura: Lungs are clear. No pleural effusions or pneumothorax. Central and peripheral ai rways are patent. Incidental 4 mm right upper lobe peripheral nodule on image 5/55 Mediastinum: Heart size is enlarged, w ithout pericardial effusion. No mediastinal or hilar adeno jordyn. Thoracic aorta is normal in caliber and enhancement. Esophagus is normal in caliber, without hiatal hernia. Bones and chest wall: No suspicious bony lesions. Ribs and thoracic spine appear intact throughout. No axillary or supraclavicular adenopathy. The thyroid is normal in size and there are no incident al findings. Bilateral total shoulder arthroplasty. Abdomen: Visualized upper abdominal solid organs appear normal in the early arterial phase of enhanc ement. Fundoplication changes noted. No hiatal hernia IMPRESSION: 1. No evidence of pulmonary embolism, aortic aneurysm or dissection. 2. Cardiomegaly. 3. Incidental 4 mm right upper lobe peripheral nodule. Consider one-year follow-up to document stabil ity. Reviewed by: Fahad Byrne MD on 08/18/2021 2:22 PM AKDT Approved by: Fahad Byrne MD on 08/18/2021 2:22 PM AKDT Station ID: [id number]
[2021-08-18 17:01] LABS: BILIRUBIN,URINE NEGATIVE (NEGATIVE); CLARITY,URINE CLEAR (CLEAR); GLUCOSE, URINE (UA) NEGATIVE (NEGATIVE); KETONES,URINE (UA) NEGATIVE (NEGATIVE); LEUKOCYTE ESTERASE, URINE NEGATIVE (NEGATIVE); NITRITE,URINE NEGATIVE (NEGATIVE); OCCULT BLOOD,URINE NEGATIVE (NEGATIVE); PROTEIN,URINE 100 mg/dL (NEGATIVE); UROBILINOGEN,URINE 0.2 (NORMAL) E.U./dL (NORMAL)
[2021-08-18 17:10] LABS: BACTERIA,URINE None Seen /HPF (None Seen); RBC,URINE None Seen /HPF (0-5); SQUAMOUS EPITHELIAL CELL,UR FEW Squamous (<= Few); WBC,URINE 0-3 /HPF (0-5)
[2021-08-18 17:15] VITALS: BP 163/86
== END 2021-08-18 17:56 | disposition home or self-care (01) ==
LOC: ED 13:07
DX: E86.0 Dehydration (principal)
CPT/HCPCS: 36415; 80053; 81001; 81003; 83605; 83690; 83880; 85025; 87086; 93005; 96360; 96361; 99284